=== PATIENT | male | born 1930 | race Caucasian/White ===

== ENCOUNTER → 2018-03-06 | Outpatient (CLI) | payer OTHER ==
--- NOTE | 2018-03-06 19:03 | REP ---
Clinical: Pneumoconiosis. Technique: PA and lateral. Comparison: 12/15/2015. Findings: Stable cardiomegaly is suggested. Lung guadarrama demonstrate diffuse chronic pleuroparenchymal changes including scattered bilateral pleural calcifications. No obvious acute consolidation, effusion, or pneumothorax. Skeletal structures intact. Impression: Chronic stable changes. Electronically Signed by Tal Bajwa MD 03/06/2018 06:54 P
== END ==
LOC: M SMT 10:30
PROVIDERS: ATTEND Internal Medicine Pulmonary Disease
DX: J62.0 Pneumoconiosis due to talc dust (principal)